=== PATIENT | male | born 1940 | race American Indian/Alaskan Native ===

== ENCOUNTER 2019-02-01 09:42 | Outpatient (CLI) | payer MEDICARE ==
--- NOTE | 2019-02-01 14:21 | Cat Scan Report ---
CT ABDOMEN PELVIS WITHOUT CONTRAST: HISTORY: Prostate cancer. COMPARISON: Bone scan performed same day. No previous CT. TECHNIQUE: Helical CT in 1.25mm intervals without IV contrast. Sagittal and coronal reconstructions. FINDINGS: Lung bases: Normal. Liver: Normal. Biliary system: Normal. Pancreas: Normal. Spleen: Normal. Kidneys/ureters/bladder: The right kidney is unremarkable. The left kidney is low lying and slightly atrophic. There is no evidence for renal cystic disease, obvious mass or nephrolithiasis. The bladder is unremarkable. Normal prostate. Adrenal glands: Normal. Aorta: Normal. Intestines: Normal. Appendix: Not identified. Ascites: None. Adenopathy: None. Musculoskeletal: No suspicious bony lesion or fracture is identified. Moderate lumbar spondylosis. A small to medium left inguinal hernia containing fat is identified. IMPRESSION: No evidence for metastatic disease to the abdomen or pelvis. Left renal ectopia and mild atrophy.
--- NOTE | 2019-02-02 08:32 | Nuclear Medicine Report ---
BONE SCAN: History: Prostate cancer. Comparison: CT abdomen pelvis without contrast performed the same day. Technique: Anterior and posterior whole-body imaging was performed 3 hours after injection of 25 mCi of technetium 99m MDP. Findings: There is physiologic renal and soft tissue activity. Left renal ectopia is again noted. Mild degenerative uptake is noted in the right shoulder, elbows, wrists and feet. There is multilevel facet arthropathy throughout the thoracic and lumbar spine. Photopenic defects in both knees are consistent with bilateral knee replacements. No focal activity suspicious for metastatic disease is appreciated. IMPRESSION: Negative bone scan for metastasis.
== END 2019-02-01 09:43 | disposition home or self-care (01) ==
LOC: NM 09:42
PROVIDERS: ATTEND Urology
DX: N26.1 Atrophy of kidney (terminal) (principal); Q63.2 Ectopic kidney; E78.00 Pure hypercholesterolemia, unspecified; I10 Essential (primary) hypertension
CPT/HCPCS: 74176; 78306; A9503

== ENCOUNTER 2019-04-16 07:03 | Day surgery (SDC) | payer MEDICARE ==
[2019-04-16] MEDS ORDERED: XYLOCAINE MPF 2% ONE (08:48)
[2019-04-16] MEDS ORDERED: SUBLIMAZE ONE ×2 (08:49→10:12)
[2019-04-16] MEDS ORDERED: DIPRIVAN 10 MG/ML IV ONE (08:49)
--- NOTE | 2019-04-16 09:00 | Anesthesia Day of Surgery ---
Anesthesia Day of Surgery - Day of Surgery Patient Examined: Yes Patient H&P Reviewed: Yes Patient is NPO: Yes Cardiac Clearance: Yes
--- NOTE | 2019-04-16 09:00 | Anesthesia Consultation ---
Anesthesia Consult and Med Hx Date of service: 04/16/19 - Airway Anesthetic Teeth Evaluation: Good ROM Head & Neck: Adequate Mental/Hyoid Distance: Adequate Mallampati Class: Class III Intubation Access Assessment: Possibly Difficult - Pulmonary Exam CTA: Yes - Cardiac Exam Cardiac Exam: RRR - Pre-Operative Health Status ASA Pre-Surgery Classification: ASA3 Proposed Anesthetic Plan: General - Pulmonary Hx Smoking: Yes (STOPPED 1967) SOB: Yes (SOB; chronic) Hx Sleep Apnea: No (MAREN PRE SCREEN HIGH RISK.) - Cardiovascular System Hx Hypertension: Yes (took irbesartan this morning) Hx Coronary Artery Disease: Yes Hx Heart Attack/AMI: No Hx Percutaneous Transluminal Coronary Angioplasty (PTCA): Yes (x2 in 2005) Hx Cardia Arrhythmia: No Hx Heart Murmur: Yes - Central Nervous System Hx Seizures: No CVA: No Hx Psychiatric Problems: Yes - Gastrointestinal Hx Gastroesophageal Reflux Disease: No - Endocrine Hx Renal Disease: No Hx Liver Disease: No Hx Insulin Dependent Diabetes: No Hx Non-Insulin Dependent Diabetes: No Hx Thyroid Disease: No - Other Systems Hx Alcohol Use: Yes (1-2 BEERS QD) Hx Obesity: No - Additional Comments Anesthesia Medical History Comments: Hx post-op delirium with prolonged hospitalization in the past. No issues with most recent anesthetic. Cardiology clearance on chart. Recent TTE shows normal EF, no significant valvular lesions. Normal stress test.
[2019-04-16] MEDS ORDERED: LACTATED RINGERS 1,000 ML ONE (09:02)
[2019-04-16] MEDS ORDERED: ANCEF/STERILE WATER 2 GM/20 ML IV NR (09:20)
[2019-04-16] MEDS ORDERED: LACTATED RINGERS 1,000 ML IV SCH (10:00)
[2019-04-16] MEDS ORDERED: LASIX ONE (11:04)
--- NOTE | 2019-04-16 11:17 | Post Operative Note ---
Date of procedure: 04/16/19 Pre-op diagnosis: cap Post-op diagnosis: same Findings: L>R Procedure: cysto cryo ablation Anesthesia: [facility] Surgeon: ORAL STALLWORTH Estimated blood loss: minimal Pathology: none Condition: stable Disposition: PACU
--- NOTE | 2019-04-16 11:18 | Discharge Summary ---
Short Stay Discharge Plan Activity: other (no straining ) Weight Bearing Status: Full Weight Bearing Diet: low fat, low cholesterol, low salt Wound: open to air, other (ice packs in RR) Durable Medical Equipment Needed Upon Discharge: other (home with maldonado ) Follow up with: RASHIDA SOLIS MD [Primary Care Provider] - 7 Days ORAL STALLWORTH MD [Staff Physician] - 7 Days
--- NOTE | 2019-04-16 11:44 | Operative Report ---
PREOPERATIVE DIAGNOSES: Adenocarcinoma of the prostate. POSTOPERATIVE DIAGNOSIS: Adenocarcinoma of the prostate. PROCEDURE: Cystoscopy, cryoablation of prostate. SURGEON: Eligio Rivera MD ANESTHESIA: General. FINDINGS: This is a gentleman with localized prostate cancer. He has had a previous small TUR or incision of the bladder neck. He has a very small gland. He now presents for cryoablation. All risks and complications were discussed. DESCRIPTION OF PROCEDURE: The patient was brought to the operating room and placed on the operating table. Following induction of anesthesia, placed in lithotomy position, prepped and draped in usual sterile fashion. Ultrasound was placed after Breen catheter was easily placed. Ultrasound showed about a 17 gram prostate with asymmetry, more gland on the left than the right. The cancer was on the left. At this point, once the ultrasound was set up, we measured the gland and developed the strategy to place the probes. The 6 probes were placed and we lowered the length to no more than 2.8 cm. The patient tolerated the procedure well. The probes were in excellent position. There was a good amount of space between the rectum and the prostate. After probes 1 and 2 were placed, we placed Denonvilliers probe and the sphincter probe. We could see this quite well. Probes 3 and 4, 5 and 6 were placed. It should be noted that probe 3 became probe 1 and then we placed 1 became 3. The patient tolerated the procedure well. First freeze was carried out. Excellent freeze was carried out and captured focusing more on the left side. Second freeze was then carried out after fourth thaw was carried out and then a thaw was carried out, the needles and probes were removed. Pressure was held. There was no significant bleeding. 20 minute warmer was left and then 18-coude was easily placed. Urine was clear. The patient tolerated the procedure well and brought to recovery room in stable condition. JOB# [id number] CHRISTINA/NIKKI
[2019-04-16] MEDS: SUBLIMAZE IV PRN ×4 (11:45→13:10)
[2019-04-16] MEDS ORDERED: PERCOCET 5/325 ONE (12:43)
[2019-04-16] MEDS ORDERED: PERCOCET 5/325 PO PRN (13:00)
[2019-04-16 13:12] VITALS: BP 188/86
--- NOTE | 2019-04-16 13:17 | Post Anesthesia Evaluation ---
- Post Anesthesia Evaluation Patient Participated: Yes Airway Patent: Yes Stable Respiratory Function: Yes Nausea/Vomiting: No Temp > 96.8F: Yes Pain Manageable: Yes Adequeate Hydration: Yes Anesthesia Complications: No
== END 2019-04-16 14:10 | disposition home or self-care (01) ==
LOC: OR 07:03
PROVIDERS: ATTEND Urology
DX: C61 Malignant neoplasm of prostate (principal); H40.9 Unspecified glaucoma; I25.10 Atherosclerotic heart disease of native coronary artery without angina pectoris; E78.00 Pure hypercholesterolemia, unspecified; I10 Essential (primary) hypertension; M19.90 Unspecified osteoarthritis, unspecified site; F32.9 Major depressive disorder, single episode, unspecified; Z95.5 Presence of coronary angioplasty implant and graft; Z79.82 Long term (current) use of aspirin; Z79.899 Other long term (current) drug therapy; Z87.891 Personal history of nicotine dependence; Z72.89 Other problems related to lifestyle; Z98.890 Other specified postprocedural states; Z96.653 Presence of artificial knee joint, bilateral
CPT/HCPCS: 55873; C2618; J1940; J2704; J3010; J7120